=== PATIENT | male | born 1970 | race Caucasian/White ===

== ENCOUNTER 2018-04-26 16:40 | Inpatient (IN) | payer BC ==
[~2018-04-26] VITALS: Ht 193 cm; Wt 85.7 kg
[2018-04-26] MEDS ORDERED: LORazepam 2 MG TABLET PO PRN (21:15)
[2018-04-26] MEDS ORDERED: ZOLPIDEM TARTRATE 10 MG TABLET PO PRN (21:15)
[2018-04-26] MEDS ORDERED: HALOPERIDOL 5 MG TABLET PO PRN (21:15)
[2018-04-26 21:37] VITALS: BP 130/92
[2018-04-27] VITALS (8 sets, daily range): BP systolic 116–142; BP diastolic 65–89
[2018-04-27 08:18] LABS: BASOPHILS % (AUTO) 0.2 % (0.0-2.0); EOSINOPHILS % (AUTO) 0.5 % (1.0-6.0); HEMATOCRIT 44.2 % (41-53); HEMOGLOBIN 15.3 g/dL (13.5-17.5); LYMPHOCYTES # (AUTO) 1.3 K/uL (1.0-4.8); LYMPHOCYTES % (AUTO) 15.7 % (22.0-44.0); MEAN CORPUSCULAR HGB CONC 34.7 G/dL (31.0-37.0); MEAN CORPUSCULAR VOLUME 92 fL (80-100); MONOCYTES # (AUTO) 0.8 K/uL (0.1-1.0); MONOCYTES % (AUTO) 10.1 % (2.0-9.0); NEUTROPHILS # (AUTO) 5.9 K/uL (1.8-7.7); NEUTROPHILS % (AUTO) 73.5 % (40.0-70.0); PLATELET COUNT (AUTO) 165 K/uL (150-450); RED BLOOD CELL COUNT(AUTO) 4.79 MIL/uL (4.50-5.90); RED CELL DISTRIBUTION WIDTH 13.6 % (11.5-14.5)
[2018-04-27 08:43] LABS: HEMOGLOBIN A1C 5.4 % (4.5-6.2)
[2018-04-27 08:55] LABS: ALANINE AMINOTRANSFERASE 28 U/L (12-78); ALKALINE PHOSPHATASE 68 U/L (46-116); ANION GAP 13 mmol/L (8-16); ASPARTATE AMINOTRANSFERASE 29 U/L (15-37); CALCIUM, TOTAL 9.4 mg/dL (8.8-10.5); CARBON DIOXIDE 24 mmol/L (22-29); CHLORIDE 98 mmol/L (98-107); CHOL/HDL RATIO 3.3 (4.2-7.3); CHOLESTEROL 209 mg/dL (131-200); CREATININE 0.98 mg/dL (0.60-1.30); FREE T4 (FREE THYROXINE) 1.27 ng/dL (0.76-1.46); GLOMERULAR FILTR. RATE CALC > 60 mL/min (>60); GLUCOSE,RANDOM 126 mg/dL (70-110); HDL CHOLESTEROL 63 mg/dL (40-60); LDL CHOL (CALC.) 120 mg/dL (0-130); POTASSIUM 3.8 mmol/L (3.5-5.1); SODIUM SERUM 135 mmol/L (136-145); TOTAL PROTEIN, SERUM 7.9 g/dL (6.4-8.2); TRIGLYCERIDES 128 mg/dL (15-150); UREA NITROGEN, BLOOD 11 mg/dL (7-18)
[2018-04-27] MEDS ORDERED: BENZOCAINE/MENTHOL LOZENGE PO PRN (11:15)
[2018-04-27] MEDS: AZITHROMYCIN 250 MG TABLET PO SCH (11:47)
[2018-04-27] MEDS: BuPROPion HCL XL 150 MG ER TABLET PO SCH (12:45)
[2018-04-28] VITALS (7 sets, daily range): BP systolic 115–137; BP diastolic 72–87
[2018-04-28 08:24] LABS: APPEARANCE,URINE CLEAR (CLEAR); BILIRUBIN,URINE NEGATIVE (NEGATIVE); GLUCOSE, URINE (UA) 500 mg/dL (NEGATIVE); KETONES,URINE 40 mg/dL (NEGATIVE); LEUKOCYTE ESTERASE ,URINE NEGATIVE (NEGATIVE); NITRATE,URINE NEGATIVE (NEGATIVE); OCCULT BLOOD,URINE SMALL (NEGATIVE); PH,URINE 6.5 (5.0-8.0); PROTEIN,URINE NEGATIVE (NEGATIVE)
[2018-04-28] MEDS: BuPROPion HCL XL 150 MG ER TABLET PO SCH (08:25)
[2018-04-28] MEDS: AZITHROMYCIN 250 MG TABLET PO SCH (08:25)
[2018-04-28 08:29] LABS: AMPHET/METH SCREEN,URINE NEGATIVE (NEGATIVE); BARBITURATE SCREEN, URINE NEGATIVE (NEGATIVE); BENZODIAZEPINES SCREEN,URINE NEGATIVE (NEGATIVE); CANNABINOID SCREEN,URINE POSITIVE (NEGATIVE); COCAINE SCREEN,URINE NEGATIVE (NEGATIVE); METHADONE SCREEN, URINE NEGATIVE (NEGATIVE); OPIATE SCREEN,URINE NEGATIVE (NEGATIVE); PHENCYCLIDINE SCREEN,URINE NEGATIVE (NEGATIVE)
[2018-04-28 09:47] LABS: BACTERIA,URINE Rare /HPF (None Seen); RBC,URINE 0-2 /HPF (0-2); SQUAMOUS EPITHELIAL CELL,UR Few /LPF (None Seen)
[2018-04-29 06:12] VITALS: BP 130/84
[2018-04-29] MEDS: AZITHROMYCIN 250 MG TABLET PO SCH (08:02)
[2018-04-29] MEDS: BuPROPion HCL XL 150 MG ER TABLET PO SCH (08:02)
[2018-04-29 13:37] VITALS: BP 128/73
[2018-04-29 16:06] VITALS: BP 136/86
[2018-04-30 06:13] VITALS: BP 138/83
[2018-04-30 08:26] VITALS: BP 139/80
[2018-04-30] MEDS: BuPROPion HCL XL 150 MG ER TABLET PO SCH (08:30)
[2018-04-30] MEDS: AZITHROMYCIN 250 MG TABLET PO SCH (08:30)
[2018-04-30 16:18] VITALS: BP 135/80
[2018-05-01 07:00] VITALS: BP 126/79
[2018-05-01 08:14] VITALS: BP 124/71
[2018-05-01] MEDS ORDERED: BUPR-93 PO (08:21)
[2018-05-01] MEDS ORDERED: AZIT250T9 PO (08:22)
[2018-05-01] MEDS: AZITHROMYCIN 250 MG TABLET PO SCH (08:27)
[2018-05-01] MEDS: BuPROPion HCL XL 150 MG ER TABLET PO SCH (08:27)
[2018-05-01 09:33] LABS: ANION GAP 11 mmol/L (8-16); CALCIUM, TOTAL 9.2 mg/dL (8.8-10.5); CARBON DIOXIDE 26 mmol/L (22-29); CHLORIDE 99 mmol/L (98-107); CREATININE 0.91 mg/dL (0.60-1.30); GLOMERULAR FILTR. RATE CALC > 60 mL/min (>60); GLUCOSE,RANDOM 101 mg/dL (70-110); POTASSIUM 3.8 mmol/L (3.5-5.1); SODIUM SERUM 136 mmol/L (136-145); UREA NITROGEN, BLOOD 11 mg/dL (7-18)
== END 2018-05-01 10:50 | disposition home or self-care (01) | DRG 885 ==
LOC: B2X 21:13
PROVIDERS: ADMIT Psychiatry & Neurology Psychiatry; ATTEND Psychiatry & Neurology Psychiatry
DX: F33.2 Major depressive disorder, recurrent severe without psychotic features (principal); E87.1 Hypo-osmolality and hyponatremia; R17 Unspecified jaundice; E78.5 Hyperlipidemia, unspecified; J06.9 Acute upper respiratory infection, unspecified; F41.9 Anxiety disorder, unspecified; F12.90 Cannabis use, unspecified, uncomplicated; Z91.19 Patient's noncompliance with other medical treatment and regimen; Z88.0 Allergy status to penicillin
CPT/HCPCS: 80307; 83036; 84439; 84443